=== PATIENT | female | born 1990 | race African-American/Black ===

== ENCOUNTER 2024-01-03 18:32 | Emergency (ER) | payer MEDICAID ==
[~2024-01-03] VITALS: Ht 170.2 cm; Wt 122.7 kg
[2024-01-03] MEDS: IPRATROPIUM BROMIDE 0.5 MG/2.5 ML NEB SOLUTION NEB ONE (19:31)
[2024-01-03] MEDS: ALBUTEROL SULFATE 2.5 MG/0.5 ML NEB SOLUTION NEB ONE (19:31)
[2024-01-03 19:35] VITALS: PULSE 97; RESP 18; O2SAT 99
[2024-01-03 19:50] VITALS: PULSE 96; RESP 18; O2SAT 100
[2024-01-03 19:59] VITALS: BP 140/110; PULSE 80; RESP 16; TEMP 98.4
[2024-01-03] MEDS ORDERED: MethylPREDNISolone SOD SUCC 125 MG/2 ML VIAL IVP ONE (21:00)
[2024-01-03] MEDS ORDERED: SODIUM CHLORIDE 0.9% 1,000 ML IV ONE (21:00)
[2024-01-03] MEDS: PredniSONE 20 MG TABLET PO ONE (21:31)
[2024-01-03] MEDS: ALBUTEROL SULFATE HFA 90 MCG/PUFF 8 GM INHALER IH ONE (22:59)
== END 2024-01-03 23:38 | disposition home or self-care (01) ==
LOC: EMS 18:32
DX: J45.901 Unspecified asthma with (acute) exacerbation (principal)
CPT/HCPCS: 99283; 71045; 94640; J7512; J3535; J7613